=== PATIENT | female | born 1985 | race Caucasian/White ===

== ENCOUNTER 2016-12-11 10:38 | Emergency (ER) | payer MEDICAID ==
[~2016-12-11] VITALS: Ht 180.3 cm; Wt 83.4 kg
[2016-12-11 10:40] VITALS: BP 136/80
[2016-12-11 12:38] LABS: HEMOGLOBIN 12.8 g/dL (11.7-16.4)
== END 2016-12-11 13:54 | disposition home or self-care (01) ==
LOC: ED 11:25
DX: R10.2 Pelvic and perineal pain (principal); R11.0 Nausea; Z98.51 Tubal ligation status
CPT/HCPCS: 36415; 76830; 81001; 84702; 85025; 86901; 99285

== ENCOUNTER 2017-04-05 18:24 | Emergency (ER) | payer MEDICAID ==
[~2017-04-05] VITALS: Ht 180.3 cm; Wt 84.1 kg
[2017-04-05 18:32] VITALS: BP 136/85
== END 2017-04-05 19:38 | disposition home or self-care (01) ==
LOC: ED 19:30
DX: K02.9 Dental caries, unspecified (principal); F17.210 Nicotine dependence, cigarettes, uncomplicated
CPT/HCPCS: 99283

== ENCOUNTER 2017-08-22 14:06 | Emergency (ER) | payer MEDICAID ==
[~2017-08-22] VITALS: Ht 180.3 cm; Wt 80.1 kg
[2017-08-22 14:08] VITALS: BP 158/97
== END 2017-08-22 15:36 | disposition home or self-care (01) ==
LOC: ED 15:30
DX: L20.84 Intrinsic (allergic) eczema (principal); L30.9 Dermatitis, unspecified
CPT/HCPCS: 99282; J7512

== ENCOUNTER 2019-03-23 23:32 | Emergency (ER) | payer MEDICAID ==
[~2019-03-23] VITALS: Ht 180.3 cm; Wt 78.0 kg
[2019-03-23 23:41] VITALS: BP 143/91
[2019-03-24 00:16] LABS: ALANINE AMINOTRANSFERASE 20 U/L (12-78); ALBUMIN 3.8 g/dL (3.4-5.0); ANION GAP 8 mmol/L (5-15); CHLORIDE 106 mmol/L (98-107); CREATININE 1.05 mg/dL (0.55-1.02)
[2019-03-24 00:20] LABS: ALKALINE PHOSPHATASE 53 U/L (45-117); BILIRUBIN,TOTAL 0.4 mg/dL (0.2-1.0); TOTAL PROTEIN 7.8 g/dL (6.4-8.2)
[2019-03-24 01:49] LABS: TROPONIN I < 0.015 ng/mL (0.000-0.045)
== END 2019-03-24 02:59 | disposition home or self-care (01) ==
LOC: ED 03-24 01:30
DX: R60.0 Localized edema (principal); R07.9 Chest pain, unspecified; M79.662 Pain in left lower leg
CPT/HCPCS: 36415; 71046; 80053; 83880; 84484; 85025; 93005; 93970; 99284

== ENCOUNTER 2019-07-31 02:34 | Emergency (ER) | payer MEDICAID ==
[~2019-07-31] VITALS: Ht 180.3 cm; Wt 78.2 kg
--- NOTE | 2019-07-31 02:53 | NUR ---
assessment made. PA at bedside. c/o lacerations at the base of index , middle and ring fingers. bleeding controlled. tetanus shot up to date.
--- NOTE | 2019-07-31 03:19 | NUR ---
wound irrigated, cleaned. dermabond applied. dressing done.
[2019-07-31] MEDS ORDERED: IBUPROFEN 600 MG TABLET PO ONE (03:30)
[2019-07-31] MEDS ORDERED: IBUPROFEN 600 MG TABLET ONE (03:52)
--- NOTE | 2019-07-31 04:02 | NUR ---
patient medicated for pain. discharged with instruction. verbalized understanding.
[2019-07-31 04:04] VITALS: BP 139/81
--- NOTE | 2019-07-31 04:04 | NUR ---
cab voucher provided.
== END 2019-07-31 04:07 | disposition home or self-care (01) ==
LOC: ED 03:10
DX: S61.412A Laceration without foreign body of left hand, initial encounter (principal); X58.XXXA Exposure to other specified factors, initial encounter; Y93.89 Activity, other specified; Y92.89 Other specified places as the place of occurrence of the external cause; Y99.8 Other external cause status
CPT/HCPCS: 12001; 99283

== ENCOUNTER 2020-06-01 18:48 | Emergency (ER) | payer MEDICAID ==
[~2020-06-01] VITALS: Ht 180.3 cm; Wt 80.0 kg
--- NOTE | 2020-06-01 19:18 | NUR ---
PT STS ADHESIVE FROM CARDIAC LEADS IS CAUSING HER TO BREAK OUT. PT REMOVED MONITORING BECAUSE OF THIS
--- NOTE | 2020-06-01 19:20 | NUR ---
ERP TO BEDSIDE
[2020-06-01 20:53] LABS: BASOPHILS # (AUTO) 0.03 x10^3/uL (0-0.1); BASOPHILS % (AUTO) 1 % (0-1); EOSINOPHILS # (AUTO) 0.17 x10^3/uL (0-0.4); EOSINOPHILS % (AUTO) 3 % (1-7); LYMPHOCYTES # (AUTO) 2.33 x10^3/uL (1-3.4); LYMPHOCYTES % (AUTO) 39 % (22-44); MD NO; MEAN CORPUSCULAR HEMOGLOBIN 29.6 pg (27.0-34.8); MEAN CORPUSCULAR HGB CONC 32.8 g/dL (32.4-35.8); MONOCYTES # (AUTO) 0.42 x10^3/uL (0.2-0.8); MONOCYTES % (AUTO) 7 % (2-9); NEUTROPHILS % (AUTO) 51 % (42-75); PLATELET COUNT 214 x10^3/uL (130-400); RED CELL DISTRIBUTION WIDTH 14.9 % (9.6-15.2)
--- NOTE | 2020-06-01 21:01 | NUR ---
REPORT TO [facility] TRANSFERED AT THIS TIME
[2020-06-01 21:03] LABS: ANION GAP 5 mmol/L (5-15); CALCIUM 8.1 mg/dL (8.5-10.1); CHLORIDE 111 mmol/L (98-107); CREATININE 0.81 mg/dL (0.55-1.02)
--- NOTE | 2020-06-01 22:03 | NUR ---
pt ambulatory to restroom for u/a. denies any needs. will ctm.
[2020-06-01 22:05] VITALS: BP 106/70
[2020-06-01 22:11] LABS: MICROSCOPIC NOT IND
[2020-06-01 23:10] LABS: AMPHETAMINE SCREEN, URINE Negative (Negative); BARBITURATE SCREEN, URINE Negative (Negative); BENZODIAZEPINE SCREEN, URINE Negative (Negative); CANNABINOID SCREEN, URINE Negative (Negative); COCAINE SCREEN, URINE Negative (Negative); METHADONE SCREEN, URINE Negative (Negative); OPIATE SCREEN, URINE Negative (Negative)
== END 2020-06-01 22:39 | disposition home or self-care (01) ==
LOC: ED 19:10
DX: R53.83 Other fatigue (principal); R07.89 Other chest pain; R42 Dizziness and giddiness; F41.9 Anxiety disorder, unspecified; I50.9 Heart failure, unspecified; Z98.51 Tubal ligation status
CPT/HCPCS: 36415; 71045; 80048; 80307; 81003; 84703; 85025; 99284

== ENCOUNTER 2020-07-09 07:43 | Emergency (ER) | payer MEDICAID ==
[~2020-07-09] VITALS: Ht 180.3 cm; Wt 76.1 kg
[2020-07-09 07:49] VITALS: BP 127/82
[2020-07-09] MEDS ORDERED: ONDANSETRON ODT 4 MG PO ONE (08:30)
[2020-07-09] MEDS ORDERED: SODIUM CHLORIDE FLUSH 10ML SYR IVF ONE (08:30)
[2020-07-09 08:37] LABS: BASOPHILS % (AUTO) 0 % (0-1); EOSINOPHILS % (AUTO) 1 % (1-7); LYMPHOCYTES % (AUTO) 23 % (22-44); MEAN CORPUSCULAR HEMOGLOBIN 29.7 pg (27.0-34.8); MEAN PLATELET VOLUME 9.2 fL (7.4-10.4); MONOCYTES % (AUTO) 7 % (2-9); NEUTROPHILS % (AUTO) 69 % (42-75); PLATELET COUNT 207 x10^3/uL (130-400); RED BLOOD COUNT 4.16 x10^6/uL (3.82-5.3); RED CELL DISTRIBUTION WIDTH 14.1 % (9.6-15.2)
[2020-07-09 08:38] LABS: MD NO
[2020-07-09] MEDS ORDERED: ONDANSETRON ODT 4 MG ONE (08:39)
[2020-07-09 08:48] LABS: ALBUMIN 3.7 g/dL (3.4-5.0); ANION GAP 3 mmol/L (5-15); CHLORIDE 105 mmol/L (98-107)
[2020-07-09 08:51] LABS: ALANINE AMINOTRANSFERASE 20 U/L (12-78); ALKALINE PHOSPHATASE 59 U/L (45-117); BILIRUBIN,TOTAL 0.2 mg/dL (0.2-1.0); CREATININE 1.13 mg/dL (0.55-1.02)
[2020-07-09 09:41] LABS: MICROSCOPIC AUTO
[2020-07-09] MEDS ORDERED: OMNIPAQUE 350 MG/ML, 100ML BOTTLE ONE (10:12)
== END 2020-07-09 10:58 | disposition home or self-care (01) ==
LOC: ED 10:52
DX: N30.01 Acute cystitis with hematuria (principal); R10.31 Right lower quadrant pain; R19.7 Diarrhea, unspecified
CPT/HCPCS: 36415; 74177; 76830; 80053; 81001; 83690; 84703; 85025; 87077; 87086; 99285; Q0162; Q9967; 87186

== ENCOUNTER 2021-02-24 17:37 | Emergency (ER) | payer MEDICAID ==
[~2021-02-24] VITALS: Ht 180.3 cm; Wt 82.0 kg
--- NOTE | 2021-02-24 18:21 | NUR ---
ATRAUMATIC LEFT ANKLE PAIN/SWELLING X TWO DAYS. CRACKED SKIN NOTED ON HEEL, OTHERWISE NO OPEN WOUNDS. DENIES HX OF DM.
[2021-02-24] MEDS ORDERED: OXYcodone/APAP 5/325MG TABLET ONE (18:53)
[2021-02-24] MEDS ORDERED: SULFAMETH./TRIMETHOPRIM DS 800MG/160MG TABLET ONE (18:54)
[2021-02-24] MEDS ORDERED: CEFTRIAXONE 1,000 MG ONE (18:54)
[2021-02-24] MEDS ORDERED: SULFAMETH./TRIMETHOPRIM DS 800MG/160MG TABLET PO ONE (19:00)
[2021-02-24] MEDS ORDERED: OXYcodone/APAP 5/325MG TABLET PO ONE (19:00)
[2021-02-24] MEDS ORDERED: CEFTRIAXONE 1,000 MG IM ONE ×2 (19:00)
[2021-02-24 19:05] VITALS: BP 100/60
--- NOTE | 2021-02-24 19:25 | NUR ---
NO S/S OF ABX RXN NOTED. DC EDUCATION PROVIDED, PT DEMONSTRATES UNDERSTANDING. PT TRANSFERRED SELF TO WHEEL CHAIR, PROVIDED CRUTCHES FOR SAFE AMBULATION. FAMILY MEMBER TO TRANSPORT PT HOME.
== END 2021-02-24 19:44 | disposition home or self-care (01) ==
LOC: ED 19:17
DX: L03.116 Cellulitis of left lower limb (principal); I50.9 Heart failure, unspecified; F17.200 Nicotine dependence, unspecified, uncomplicated
CPT/HCPCS: 96372; 99283; J0696

== ENCOUNTER 2021-03-04 00:56 | Inpatient (IN) | payer MEDICAID ==
[~2021-03-04] VITALS: Ht 180.3 cm; Wt 88.5 kg
--- NOTE | 2021-03-04 01:45 | NUR ---
pt arrives to ER for bilateral lower extremety pain and swelling and redness, pt states she had the same problem before fathers day and was diagnosed with cellulitis, pts feet are red and swollen, pt a/ox4, pt a little tearful from pain
[2021-03-04] MEDS ORDERED: SODIUM CHLORIDE 0.9% 1,000ML IVBOLUS ONE (02:00)
--- NOTE | 2021-03-04 02:16 | NUR ---
PT TAKEN TO ULTRASOUND BY US TECH, AND PT CALM AND COOPERATIVE.
--- NOTE | 2021-03-04 03:18 | NUR ---
pt laying in bed resting, all needs in reach, fluids running, VSS, pt has no complaints at this time
[2021-03-04 03:19] LABS: BASOPHILS % (AUTO) 0 % (0-1); EOSINOPHILS % (AUTO) 1 % (1-7); LYMPHOCYTES % (AUTO) 17 % (22-44); MEAN CORPUSCULAR HEMOGLOBIN 29.8 pg (27.0-34.8); MEAN CORPUSCULAR HGB CONC 33.7 g/dL (32.4-35.8); MEAN PLATELET VOLUME 8.4 fL (7.4-10.4); MONOCYTES % (AUTO) 7 % (2-9); NEUTROPHILS % (AUTO) 75 % (42-75); PLATELET COUNT 271 x10^3/uL (130-400); RED BLOOD COUNT 4.48 x10^6/uL (3.82-5.3); RED CELL DISTRIBUTION WIDTH 13.6 % (9.6-15.2)
[2021-03-04 03:30] LABS: ALBUMIN 4.3 g/dL (3.4-5.0); ANION GAP 10 mmol/L (5-15); CALCIUM 9.2 mg/dL (8.5-10.1); CHLORIDE 102 mmol/L (98-107)
--- NOTE | 2021-03-04 03:33 | NUR ---
pt asleep in bed, all needs in reach, call light in reach, NAD
[2021-03-04 03:34] LABS: ALANINE AMINOTRANSFERASE 28 U/L (12-78); ALKALINE PHOSPHATASE 64 U/L (45-117); BILIRUBIN,TOTAL 0.6 mg/dL (0.2-1.0); CREATININE 1.49 mg/dL (0.55-1.02); TOTAL PROTEIN 8.9 g/dL (6.4-8.2)
[2021-03-04] MEDS ORDERED: VANCOMYCIN 2,000 MG in SODIUM CHLORIDE 0.9% 500 ML IV ONE (04:30)
[2021-03-04] MEDS ORDERED: VANCOMYCIN PER PHARMACY MC ONE (04:30)
[2021-03-04] MEDS ORDERED: CEFTRIAXONE 1,000 MG in DEXTROSE 5% 50 ML IVPB ONE (04:30)
[2021-03-04] MEDS ORDERED: DOCUSATE 100 MG CAPSULE PO PRN (05:00)
[2021-03-04] MEDS ORDERED: ONDANSETRON 2MG/ML, 2ML IVPush PRN (05:00)
[2021-03-04] MEDS ORDERED: ACETAMINOPHEN 325 MG TABLET PO PRN (05:00)
[2021-03-04] MEDS ORDERED: BACLOFEN 10 MG TABLET PO PRN (05:00)
[2021-03-04] MEDS ORDERED: hydrALAzine 20 MG/ML, 1ML IVPush PRN (05:00)
[2021-03-04] MEDS ORDERED: morphine SULFATE 10 MG/ML, 1ML IVPush PRN (05:00)
[2021-03-04] MEDS ORDERED: VANCOMYCIN PER PHARMACY MC PRN (05:00)
[2021-03-04] MEDS ORDERED: GUAIFENESIN/DM 200-20MG, 10ML UDC PO PRN (05:00)
[2021-03-04] MEDS ORDERED: ZOLPIDEM 5MG TABLET PO PRN (05:00)
[2021-03-04 06:20] VITALS: BP 110/69
[2021-03-04] MEDS ORDERED: PHARMACOKINETIC MONITORING MC PRN (06:30)
[2021-03-04] MEDS: SODIUM CHLORIDE 0.9% 1,000 ML IV SCH ×2 (08:08→15:09)
[2021-03-04] MEDS ORDERED: PHARMACOKINETIC CONSULTATION MC ONE (08:30)
[2021-03-04] MEDS: CEFEPIME 2 GM in DEXTROSE 5% 100 ML IV SCH (09:11)
[2021-03-04] MEDS: HYDROcodone/APAP 5/325 TABLET PO PRN ×2 (13:29→19:32)
[2021-03-04 13:31] VITALS: BP 113/65
[2021-03-04] MEDS: HEPARIN 5,000 UNITS/ML, 1ML SQ SCH (16:30)
[2021-03-04 17:23] LABS: MICROSCOPIC AUTO
[2021-03-04 17:31] LABS: AMPHETAMINE SCREEN, URINE Positive (Negative); BARBITURATE SCREEN, URINE Negative (Negative); BENZODIAZEPINE SCREEN, URINE Negative (Negative); CANNABINOID SCREEN, URINE Negative (Negative); COCAINE SCREEN, URINE Negative (Negative); METHADONE SCREEN, URINE Negative (Negative); OPIATE SCREEN, URINE Positive (Negative)
[2021-03-04 19:56] VITALS: BP 96/60
[2021-03-04] MEDS ORDERED: VANCOMYCIN 1,600 MG in SODIUM CHLORIDE 0.9% 250 ML IV SCH (23:00)
[2021-03-05] MEDS: HEPARIN 5,000 UNITS/ML, 1ML SQ SCH ×3 (00:13→16:30)
[2021-03-05] MEDS: SODIUM CHLORIDE 0.9% 1,000 ML IV SCH (02:42)
[2021-03-05 02:43] VITALS: BP 94/54
[2021-03-05 04:44] LABS: BASOPHILS % (AUTO) 0 % (0-1); EOSINOPHILS % (AUTO) 2 % (1-7); LYMPHOCYTES % (AUTO) 43 % (22-44); MEAN CORPUSCULAR HEMOGLOBIN 30.6 pg (27.0-34.8); MEAN CORPUSCULAR HGB CONC 34.2 g/dL (32.4-35.8); MEAN PLATELET VOLUME 8.5 fL (7.4-10.4); MONOCYTES % (AUTO) 8 % (2-9); NEUTROPHILS % (AUTO) 47 % (42-75); PLATELET COUNT 197 x10^3/uL (130-400); RED BLOOD COUNT 3.15 x10^6/uL (3.82-5.3); RED CELL DISTRIBUTION WIDTH 13.7 % (9.6-15.2)
[2021-03-05 04:54] LABS: ANION GAP 4 mmol/L (5-15); CALCIUM 7.8 mg/dL (8.5-10.1); CHLORIDE 112 mmol/L (98-107); CREATININE 0.74 mg/dL (0.55-1.02)
[2021-03-05 07:11] VITALS: BP 105/70
[2021-03-05] MEDS: CEFEPIME 2 GM in DEXTROSE 5% 100 ML IV SCH (08:23)
[2021-03-05] MEDS: HYDROcodone/APAP 5/325 TABLET PO PRN ×2 (09:48→14:10)
[2021-03-05 13:52] VITALS: BP 100/63
[2021-03-05] MEDS: VANCOMYCIN 1,600 MG in SODIUM CHLORIDE 0.9% 250 ML IV SCH (15:51)
[2021-03-05 20:09] VITALS: BP 117/75
[2021-03-06 00:57] VITALS: BP 115/72
[2021-03-06] MEDS: HEPARIN 5,000 UNITS/ML, 1ML SQ SCH ×2 (01:01→07:56)
[2021-03-06] MEDS: HYDROcodone/APAP 5/325 TABLET PO PRN ×2 (01:11→08:03)
[2021-03-06] MEDS: VANCOMYCIN 1,600 MG in SODIUM CHLORIDE 0.9% 250 ML IV SCH (03:17)
[2021-03-06 07:39] VITALS: BP 117/81
[2021-03-06] MEDS: CEFEPIME 2 GM in DEXTROSE 5% 100 ML IV SCH (07:55)
[2021-03-06] MEDS ORDERED: AMOX1TAB64 PO ×3 (11:41→14:52)
[2021-03-06] MEDS ORDERED: HYDR-2214 PO ×3 (11:41→14:52)
== END 2021-03-06 13:10 | disposition home or self-care (01) | DRG 872 ==
LOC: ED 05:07 → EDIP 05:08 → 3N 06:03
PROVIDERS: ADMIT Internal Medicine; ATTEND Internal Medicine
DX: A41.9 Sepsis, unspecified organism (principal); L03.115 Cellulitis of right lower limb; L03.116 Cellulitis of left lower limb; N17.9 Acute kidney failure, unspecified; I50.9 Heart failure, unspecified; F10.21 Alcohol dependence, in remission; F15.90 Other stimulant use, unspecified, uncomplicated; F29 Unspecified psychosis not due to a substance or known physiological condition; F17.210 Nicotine dependence, cigarettes, uncomplicated; Z88.0 Allergy status to penicillin; Z63.8 Other specified problems related to primary support group; Z98.51 Tubal ligation status; Z88.8 Allergy status to other drugs, medicaments and biological substances; Z79.899 Other long term (current) drug therapy
CPT/HCPCS: 36415; 80048; 80053; 80307; 81001; 83605; 84145; 84550; 85025; 87040; 87086; 93970; 96361; 96365; 96375; G0378; J0696; J1644; J3370; J2270; J7030; J7040; J7050